=== PATIENT | male | born 1990 | race Caucasian/White ===

== ENCOUNTER 2016-07-22 12:41 | Inpatient (IN) | payer OTHER ==
--- NOTE | 2016-07-22 12:52 | ER Document Report ---
ED Medical Screen (RME) - General Stated Complaint: SORE THROAT Time seen by provider: 12:50 Mode of Arrival: Ambulatory Notes: Patient is here today complaining of abdominal pain and constant diarrhea for the last 2-3 weeks. Patient reports diarrhea 5 already this morning. He reports weight loss, denies nausea or vomiting, states not eating well. Patient has extreme fatigue. Sore throat started about 2 days ago, denies nasal congestion. Denies fever. I have greeted and performed a rapid initial assessment of this patient. A comprehensive ED assessment and evaluation of the patient, analysis of test results and completion of the medical decision making process will be conducted by additional ED providers. - Related Data Allergies/Adverse Reactions: No Known Allergies Allergy (Unverified 07/22/16 12:42) Physical Exam - Vital signs Vitals: Temp Pulse Resp BP Pulse Ox 97.4 F 138 H 18 109/71 100 07/22/16 12:46 07/22/16 12:46 07/22/16 12:46 07/22/16 12:46 07/22/16 12:46 - HEENT Pharynx: Erythema, Other - ulcerations noted to oropharynx Course - Vital Signs Vital signs: Temp Pulse Resp BP Pulse Ox 97.4 F 138 H 18 109/71 100 07/22/16 12:46 07/22/16 12:46 07/22/16 12:46 07/22/16 12:46 07/22/16 12:46
[2016-07-22] MEDS: NORMAL SALINE 1000 ML 1,000 ML IV PRN ×2 (13:21→13:58)
[2016-07-22] MEDS ORDERED: ONDANSETRON HCL INJ/PF 4 MG/2 ML SDV IV ONE (13:28)
[2016-07-22 14:06] LABS: HEMATOCRIT 39.3 % (37.9-51.0); HEMOGLOBIN 12.8 g/dL (13.5-17.0); HGB HCT DIFFERENCE -0.9; MEAN CORPUSCULAR HEMOGLOBIN 24.7 pg (27.0-33.4); MEAN CORPUSCULAR HGB CONC 32.5 g/dL (32.0-36.0); MEAN CORPUSCULAR VOLUME 76 fl (80-97); RED BLOOD COUNT 5.17 10^6/uL (4.35-5.55); RED CELL DISTRIBUTION WIDTH 16.9 % (11.5-14.0); WHITE BLOOD COUNT 15.5 10^3/uL (4.0-10.5)
[2016-07-22 14:32] LABS: ALANINE AMINOTRANSFERASE 97 U/L (21-72); ALBUMIN 3.5 g/dL (3.5-5.0); ALKALINE PHOSPHATASE 171 U/L (38-126); ANION GAP 10 (5-19); ASPARTATE AMINO TRANSFERASE 70 U/L (17-59); BILIRUBIN,TOTAL 0.9 mg/dL (0.2-1.3); BLOOD UREA NITROGEN 13 mg/dL (7-20); CALCIUM 8.8 mg/dL (8.4-10.2); CARBON DIOXIDE 32 mmol/L (22-30); CHLORIDE 82 mmol/L (98-107); CREATINE KINASE 41 U/L (55-170); CREATININE RESULT 0.81 mg/dL (0.52-1.25); GLUCOSE 130 mg/dL (75-110); LIPASE 22.2 U/L (23-300); MAGNESIUM 2.6 mg/dL (1.6-2.3); POTASSIUM 3.4 mmol/L (3.6-5.0); TOTAL PROTEIN 8.1 g/dL (6.3-8.2)
[2016-07-22 14:35] LABS: BAND NEUTROPHILS % (MANUAL) 8 % (3-5); BASOPHILS % (MANUAL) 0 % (0-2); EOSINOPHILS % (MANUAL) 0 % (0-6); LYMPHOCYTES % (MANUAL) 5 % (13-45); TOTAL CELLS COUNTED 100
[2016-07-22 14:36] LABS: ANISOCYTOSIS 1+; HYPOCHROMASIA SLIGHT; MICROCYTOSIS SLIGHT; ROULEAUX SLIGHT
[2016-07-22 16:06] LABS: APPEARANCE,URINE CLEAR; BILIRUBIN,URINE NEGATIVE (NEGATIVE); GLUCOSE, URINE NEGATIVE (NEGATIVE); KETONES,URINE NEGATIVE (NEGATIVE); LEUKOCYTE ESTERASE,URINE NEGATIVE (NEGATIVE); NITRITE,URINE NEGATIVE (NEGATIVE); PROTEIN,URINE NEGATIVE (NEGATIVE); URINE SPECIFIC GRAVITY 1.009; UROBILINOGEN,URINE NEGATIVE mg/dL (<2.0)
[2016-07-22 16:22] LABS: URINE BARBITURATES SCREEN NEGATIVE; URINE METHADONE SCREEN NEGATIVE; URINE OPIATES LOW NEGATIVE; URINE PHENCYCLIDINE SCREEN NEGATIVE
[2016-07-22] MEDS ORDERED: METRONIDAZOLE 500 MG/NS RTU 100 ML IV ONE (16:24)
[2016-07-22] MEDS ORDERED: CIPROFLOXACIN 400 MG/D5W RTU 200 ML IV ONE (16:25)
--- NOTE | 2016-07-22 16:33 | ER Document Report ---
ED General - General Chief Complaint: Sore Throat Stated Complaint: SORE THROAT Mode of Arrival: Ambulatory TRAVEL OUTSIDE OF THE [place] IN LAST 30 DAYS: No - HPI Patient complains to provider of: sore throat nausea vomiting diarrhea abdominal pain Notes: Patient recently moved from [place] to a [place] coming in today for evaluation of nausea vomiting diarrhea sore throat ongoing for the last 2 weeks sore throat last 2 days. Patient denies any medical problems states he has lost approximate 40 pounds in the last 30 days. Patient states significant [place] to work on a due to his body being transferred to [place]. Denies any allergies to medications. Upon arrival patient was found to be very tachycardic otherwise upon evaluation patient resting comfortably - Related Data Allergies/Adverse Reactions: No Known Allergies Allergy (Unverified 07/22/16 12:42) Home Medications: Current Home Medications No Home Medications 07/22/16 [History] Past Medical History - Social History Smoking Status: Unknown if Ever Smoked Chew tobacco use (# tins/day): No Frequency of alcohol use: None Drug Abuse: None Family History: Reviewed & Not Pertinent Patient has suicidal ideation: No Patient has homicidal ideation: No Renal/ Medical History: Denies: Hx Peritoneal Dialysis Surgical Hx: Negative - Immunizations Hx Diphtheria, Pertussis, Tetanus Vaccination: Yes Review of Systems - Review of Systems Constitutional: No symptoms reported EENT: Throat pain Cardiovascular: No symptoms reported Respiratory: No symptoms reported Gastrointestinal: Abdominal pain, Diarrhea, Nausea, Vomiting Genitourinary: No symptoms reported Male Genitourinary: No symptoms reported Musculoskeletal: No symptoms reported Skin: No symptoms reported Hematologic/Lymphatic: No symptoms reported Neurological/Psychological: No symptoms reported -: Yes All other systems reviewed and negative Physical Exam - Vital signs Vitals: Temp Pulse Resp BP Pulse Ox 97.4 F 138 H 18 109/71 100 07/22/16 12:46 07/22/16 12:46 07/22/16 12:46 07/22/16 12:46 07/22/16 12:46 Interpretation: Tachycardic - General General appearance: Appears well, Alert - HEENT Head: Normocephalic, Atraumatic Eyes: Normal Pupils: PERRL - Respiratory Respiratory status: No respiratory distress Chest status: Nontender Breath sounds: Normal Chest palpation: Normal - Cardiovascular Rhythm: Tachycardia Heart sounds: Normal auscultation Murmur: No - Abdominal Inspection: Normal Distension: No distension Bowel sounds: Normal Tenderness: Nontender Organomegaly: No organomegaly - Back Back: Normal, Nontender - Extremities General upper extremity: Normal inspection, Nontender, Normal color, Normal ROM , Normal temperature General lower extremity: Normal inspection, Nontender, Normal color, Normal ROM , Normal temperature, Normal weight bearing. No: Marquita's sign - Neurological Neuro grossly intact: Yes Cognition: Normal Orientation: AAOx4 [place] Coma Scale Eye Opening: Spontaneous Vincent Coma Scale Verbal: Oriented [place] Coma Scale Motor: Obeys Commands [place] Coma Scale Total: 15 Speech: Normal Motor strength normal: LUE, RUE, LLE, RLE Sensory: Normal - Psychological Associated symptoms: Normal affect, Normal mood - Skin Skin Temperature: Warm Skin Moisture: Dry Skin Color: Normal Course - Re-evaluation Re-evalutation: 07/22/16 17:23 Patient coming in lab work shows elevated white count with bandemia metabolic alkalosis with hyponatremia. Patient underwent a CAT scan showing diffuse colitis possible inflammatory bowel. Patient's mouth ulcers and history of nausea vomiting diarrhea and weight loss more likely upon for about will start Cipro Flagyl patient was fluid resuscitated however still the static. Patient will be admitted to [facility] [place] hospitalist service. - Vital Signs Vital signs: Temp Pulse Resp BP Pulse Ox 97.4 F 86 15 126/79 H 99 07/22/16 12:46 07/22/16 14:43 07/22/16 16:04 07/22/16 15:01 07/22/16 16:04 - Laboratory Result Diagrams: 07/22/16 13:50 07/22/16 13:50 Laboratory results interpreted by me: 07/22/16 07/22/16 13:50 13:50 WBC 15.5 H Hgb 12.8 L MCV 76 L MCH 24.7 L RDW 16.9 H Plt Count 465 H Seg Neuts % (Manual) 81 H Band Neutrophils % 8 H Lymphocytes % (Manual) 5 L Metamyelocytes % 2 H Abs Neuts (Manual) 14.1 H Sodium 124.0 L Potassium 3.4 L Chloride 82 L Carbon Dioxide 32 H Glucose 130 H Magnesium 2.6 H AST 70 H ALT 97 H Alkaline Phosphatase 171 H Creatine Kinase 41 L Lipase 22.2 L Critical Care Note - Critical Care Note Total time excluding time spent on procedures (mins): 35 Comments: Multiple evaluations for abnormal vital signs Discharge - Discharge Clinical Impression: colitis/inflammatory bowel, Dehydration, Hyponatremia, Nausea, vomiting, and diarrhea Condition: Good Disposition: ADMITTED INPATIENT Admitting Provider: [facility] Unit Admitted: [facility] [place]
[2016-07-22 17:18] LABS: ADD HIVPANEL? NO; HIV (1 AND 2) ANTIBODY NEGATIVE (NEGATIVE)
--- NOTE | 2016-07-22 17:41 | PDOC H&P ---
History of Present Illness Admission Date/PCP: 07/22/16 17:09 Patient complains of: Vomiting diarrhea for 2 weeks ;generalized weakness History of Present Illness: RAY GORDON is a 25 year old male Presents to the ED with 2 week history of vomiting or diarrhea generalized weakness Patient states that about a week ago he developed a skin lesion is on his left davidson. And for the past 3 days had has buccal ulcerations Upon evaluation in the ED he was found extremely dehydrated; with hyponatremia hypokalemia Low side was hypotensive and was hypotensive. Although he is because is somewhat low and is as he significant is mainly cannot be hypovolemic is a little low. I am cerebral approximately diuresing gently and exiting with his is felt that some it is his blood pressure is Past Medical History Medical History: None Past Surgical History Past Surgical History: Reports: None Social History Information Source: Patient Smoking Status: Never Smoker Frequency of Alcohol Use: None Hx Recreational Drug Use: No - Advance Directive Resuscitation Status: Full Code Surrogate healthcare decision maker:: mother Lorelei Family History Family History: Reviewed & Not Pertinent Parental Family History Reviewed: Yes Children Family History Reviewed: Yes Sibling(s) Family History Reviewed.: Yes Medication/Allergy Home Medications: No Home Medications 07/22/16 Allergies/Adverse Reactions: No Known Allergies Allergy (Unverified 07/22/16 12:42) Review of Systems Constitutional: PRESENT: weakness, weight loss. ABSENT: chills, fever(s), headache(s) Eyes: ABSENT: visual disturbances Ears: ABSENT: hearing changes Nose, Mouth, and Throat: PRESENT: as per HPI, mouth pain, other - mouth sores Cardiovascular: ABSENT: chest pain, dyspnea on exertion, edema, orthropnea, palpitations Respiratory: ABSENT: cough, hemoptysis Gastrointestinal: PRESENT: as per HPI, abdominal pain, diarrhea, nausea, vomiting Genitourinary: ABSENT: dysuria, hematuria Musculoskeletal: ABSENT: joint swelling Integumentary: ABSENT: rash, wounds Neurological: ABSENT: abnormal gait, abnormal speech, confusion, dizziness, focal weakness, syncope Psychiatric: ABSENT: anxiety, depression, homidical ideation, suicidal ideation Endocrine: ABSENT: cold intolerance, heat intolerance, polydipsia, polyuria Hematologic/Lymphatic: ABSENT: easy bleeding, easy bruising Physical Exam Vital Signs: Temp Pulse Resp BP Pulse Ox 97.4 F 86 15 126/79 H 99 07/22/16 12:46 07/22/16 14:43 07/22/16 16:04 07/22/16 15:01 07/22/16 16:04 General appearance: PRESENT: mild distress Head exam: PRESENT: atraumatic, normocephalic Eye exam: PRESENT: conjunctival injection, other - shallow ulcerations lids mild conjunctivitis Ear exam: PRESENT: normal external ear exam Throat exam: PRESENT: post pharyngeal erythema, other - shallow vesicular lesions buccal mucosa containing purulent material lesions lips and posterior pharynx Neck exam: ABSENT: carotid bruit, lymphadenopathy, tenderness Respiratory exam: PRESENT: clear to auscultation gita. ABSENT: rales, rhonchi, wheezes Cardiovascular exam: PRESENT: RRR. ABSENT: diastolic murmur, rubs, systolic murmur GI/Abdominal exam: PRESENT: normal bowel sounds, soft. ABSENT: distended, guarding, mass, organolmegaly, rebound, tenderness Extremities exam: PRESENT: full ROM. ABSENT: calf tenderness, clubbing, pedal edema Skin exam: PRESENT: other - macular lesion davidson warm to touch with central clearing Results Laboratory Results: Labs- Entire Visit 07/22/16 07/22/16 07/22/16 13:00 13:00 13:50 WBC 15.5 H RBC 5.17 Hgb 12.8 L Hct 39.3 MCV 76 L MCH 24.7 L MCHC 32.5 RDW 16.9 H Plt Count 465 H Total Counted 100 Seg Neutrophils % Not Reportable Seg Neuts % (Manual) 81 H Band Neutrophils % 8 H Lymphocytes % Not Reportable Lymphocytes % (Manual) 5 L Monocytes % Not Reportable Monocytes % (Manual) 4 Eosinophils % Not Reportable Eosinophils % (Manual) 0 Basophils % Not Reportable Basophils % (Manual) 0 Metamyelocytes % 2 H Absolute Neutrophils Not Reportable Abs Neuts (Manual) 14.1 H Absolute Lymphocytes Not Reportable Abs Lymphs (Manual) 0.8 Absolute Monocytes Not Reportable Abs Monocytes (Manual) 0.6 Absolute Eosinophils Not Reportable Absolute Eos (Manual) 0.0 Absolute Basophils Not Reportable Abs Basophils (Manual) 0.0 Platelet Comment INCREASED Hypochromasia SLIGHT Anisocytosis 1+ Microcytosis SLIGHT Rouleaux SLIGHT Sodium Potassium Chloride Carbon Dioxide Anion Gap BUN Creatinine Est GFR ( Amer) Est GFR (Non-Af Amer) Glucose Calcium Magnesium Total Bilirubin Direct Bilirubin AST ALT Alkaline Phosphatase Creatine Kinase Total Protein Albumin Lipase Urine Color Urine Appearance Urine pH Ur Specific [place] Urine Protein Urine Glucose (UA) Urine Ketones Urine Blood Urine Nitrite Urine Bilirubin Urine Urobilinogen Ur Leukocyte Esterase Urine WBC (Auto) Urine RBC (Auto) Urine Ascorbic Acid Urine Opiates Screen Urine Methadone Screen Ur Barbiturates Screen Ur Phencyclidine Scrn Ur Amphetamines Screen U Benzodiazepines Scrn Urine Cocaine Screen U Marijuana (THC) Screen Monotest HIV 1&2 Antibody Influenza A (Rapid) NEGATIVE Influenza B (Rapid) NEGATIVE Group A Strep Rapid NEGATIVE 07/22/16 07/22/16 07/22/16 13:50 13:50 13:50 WBC RBC Hgb Hct MCV MCH MCHC RDW Plt Count Total Counted Seg Neutrophils % Seg Neuts % (Manual) Band Neutrophils % Lymphocytes % Lymphocytes % (Manual) Monocytes % Monocytes % (Manual) Eosinophils % Eosinophils % (Manual) Basophils % Basophils % (Manual) Metamyelocytes % Absolute Neutrophils Abs Neuts (Manual) Absolute Lymphocytes Abs Lymphs (Manual) Absolute Monocytes Abs Monocytes (Manual) Absolute Eosinophils Absolute Eos (Manual) Absolute Basophils Abs Basophils (Manual) Platelet Comment Hypochromasia Anisocytosis Microcytosis Rouleaux Sodium 124.0 L Potassium 3.4 L Chloride 82 L Carbon Dioxide 32 H Anion Gap 10 BUN 13 Creatinine 0.81 Est GFR ( Amer) > 60 Est GFR (Non-Af Amer) > 60 Glucose 130 H Calcium 8.8 Magnesium 2.6 H Total Bilirubin 0.9 Direct Bilirubin 0.0 AST 70 H ALT 97 H Alkaline Phosphatase 171 H Creatine Kinase 41 L Total Protein 8.1 Albumin 3.5 Lipase 22.2 L Urine Color Urine Appearance Urine pH Ur Specific [place] Urine Protein Urine Glucose (UA) Urine Ketones Urine Blood Urine Nitrite Urine Bilirubin Urine Urobilinogen Ur Leukocyte Esterase Urine WBC (Auto) Urine RBC (Auto) Urine Ascorbic Acid Urine Opiates Screen Urine Methadone Screen Ur Barbiturates Screen Ur Phencyclidine Scrn Ur Amphetamines Screen U Benzodiazepines Scrn Urine Cocaine Screen U Marijuana (THC) Screen Monotest NEGATIVE HIV 1&2 Antibody NEGATIVE Influenza A (Rapid) Influenza B (Rapid) Group A Strep Rapid 07/22/16 07/22/16 15:00 15:00 WBC RBC Hgb Hct MCV MCH MCHC RDW Plt Count Total Counted Seg Neutrophils % Seg Neuts % (Manual) Band Neutrophils % Lymphocytes % Lymphocytes % (Manual) Monocytes % Monocytes % (Manual) Eosinophils % Eosinophils % (Manual) Basophils % Basophils % (Manual) Metamyelocytes % Absolute Neutrophils Abs Neuts (Manual) Absolute Lymphocytes Abs Lymphs (Manual) Absolute Monocytes Abs Monocytes (Manual) Absolute Eosinophils Absolute Eos (Manual) Absolute Basophils Abs Basophils (Manual) Platelet Comment Hypochromasia Anisocytosis Microcytosis Rouleaux Sodium Potassium Chloride Carbon Dioxide Anion Gap BUN Creatinine Est GFR ( Amer) Est GFR (Non-Af Amer) Glucose Calcium Magnesium Total Bilirubin Direct Bilirubin AST ALT Alkaline Phosphatase Creatine Kinase Total Protein Albumin Lipase Urine Color YELLOW Urine Appearance CLEAR Urine pH 6.0 Ur Specific [place] 1.009 Urine Protein NEGATIVE Urine Glucose (UA) NEGATIVE Urine Ketones NEGATIVE Urine Blood NEGATIVE Urine Nitrite NEGATIVE Urine Bilirubin NEGATIVE Urine Urobilinogen NEGATIVE Ur Leukocyte Esterase NEGATIVE Urine WBC (Auto) 3 Urine RBC (Auto) 1 Urine Ascorbic Acid NEGATIVE Urine Opiates Screen NEGATIVE Urine Methadone Screen NEGATIVE Ur Barbiturates Screen NEGATIVE Ur Phencyclidine Scrn NEGATIVE Ur Amphetamines Screen NEGATIVE U Benzodiazepines Scrn NEGATIVE Urine Cocaine Screen NEGATIVE U Marijuana (THC) Screen NEGATIVE Monotest HIV 1&2 Antibody Influenza A (Rapid) Influenza B (Rapid) Group A Strep Rapid Impressions: Abdomen/Pelvis CT 07/22/16 14:43 IMPRESSION: Diffuse colonic bowel wall thickening. Findings are consistent with colitis. This could be infectious or inflammatory. Assessment & Plan - Diagnosis (1) Dehydration Is this a current diagnosis for this admission?: Yes (2) Hyponatremia Is this a current diagnosis for this admission?: Yes (3) Nausea vomiting and diarrhea Is this a current diagnosis for this admission?: Yes (4) IBD (inflammatory bowel disease) Is this a current diagnosis for this admission?: Yes (5) Erythema nodosum Is this a current diagnosis for this admission?: Yes - Time Time Spent with patient: We'll hydrate the patient with IV fluids ; replace potassium We'll treat the patient with prednisone; Asacol , cipro and Flagyl GI consult in on Monday with Dr. Davis for colonoscopy Time Spent: 50 to 70 Minutes
[2016-07-22] MEDS ORDERED: PREDNISONE 20 MG TABLET PO ONE (17:45)
[2016-07-22] MEDS ORDERED: METRONIDAZOLE 500 MG/NS RTU 100 ML IV SCH (18:00)
[2016-07-22] MEDS: POTASSI CL 20 MEQ/NS 1L 1,000 ML IV PRN (18:55)
[2016-07-22] MEDS: SULFASALAZINE 500 MG TABLET.DR PO SCH (18:57)
[2016-07-22] MEDS ORDERED: CIPROFLOXACIN 400 MG/D5W RTU 200 ML IV SCH (22:00)
[2016-07-23] MEDS: NYSTATIN/DEXAMETH/DIPHEN SUSP 120 ML PO SCH ×5 (00:21→22:33)
[2016-07-23] MEDS: METRONIDAZOLE 500 MG/NS RTU 100 ML IV SCH ×5 (00:21→22:33)
[2016-07-23] MEDS ORDERED: METRONIDAZOLE 500 MG/NS RTU 100 ML IV SCH (03:00)
[2016-07-23] MEDS: POTASSI CL 20 MEQ/NS 1L 1,000 ML IV PRN (03:58)
[2016-07-23] MEDS: CIPROFLOXACIN 400 MG/D5W RTU 400 MG/200 ML RTUPB IV SCH ×2 (05:37→18:39)
[2016-07-23 05:43] LABS: HEMATOCRIT 31.5 % (37.9-51.0); HGB HCT DIFFERENCE -0.6; MEAN CORPUSCULAR HEMOGLOBIN 24.7 pg (27.0-33.4); MEAN CORPUSCULAR HGB CONC 32.7 g/dL (32.0-36.0); MEAN CORPUSCULAR VOLUME 76 fl (80-97); RED BLOOD COUNT 4.16 10^6/uL (4.35-5.55); RED CELL DISTRIBUTION WIDTH 16.5 % (11.5-14.0)
[2016-07-23 05:57] LABS: ALANINE AMINOTRANSFERASE 82 U/L (21-72); ALBUMIN 2.4 g/dL (3.5-5.0); ALKALINE PHOSPHATASE 120 U/L (38-126); ANION GAP 8 (5-19); ASPARTATE AMINO TRANSFERASE 46 U/L (17-59); BILIRUBIN,TOTAL 0.4 mg/dL (0.2-1.3); BLOOD UREA NITROGEN 8 mg/dL (7-20); CALCIUM 7.9 mg/dL (8.4-10.2); CARBON DIOXIDE 26 mmol/L (22-30); CHLORIDE 93 mmol/L (98-107); CREATININE RESULT 0.57 mg/dL (0.52-1.25); GLUCOSE 125 mg/dL (75-110); SODIUM 126.8 mmol/L (137-145); TOTAL PROTEIN 5.7 g/dL (6.3-8.2)
[2016-07-23] MEDS ORDERED: CIPROFLOXACIN 400 MG/D5W RTU 400 MG/200 ML RTUPB IV SCH (06:00)
[2016-07-23 06:13] LABS: HEMOGLOBIN 10.3 g/dL (13.5-17.0)
[2016-07-23 06:17] LABS: BAND NEUTROPHILS % (MANUAL) 8 % (3-5); BASOPHILS % (MANUAL) 0 % (0-2); EOSINOPHILS % (MANUAL) 0 % (0-6); LYMPHOCYTES % (MANUAL) 2 % (13-45); TOTAL CELLS COUNTED 100
[2016-07-23 06:18] LABS: TOXIC GRANULATION 2+; TOXIC VACUOLATION PRESENT
[2016-07-23 06:21] LABS: ANISOCYTOSIS 1+; BURR CELLS 1+; HELMET CELLS SLIGHT; MICROCYTOSIS 1+; POIKILOCYTOSIS 2+; ROULEAUX SLIGHT; TEAR DROP CELLS 1+
[2016-07-23 06:30] LABS: POTASSIUM 4.8 mmol/L (3.6-5.0)
[2016-07-23] MEDS: ENOXAPARIN SODIUM INJ 40 MG/0.4 ML DISP.SYRIN SUBCUT SCH (08:35)
[2016-07-23] MEDS: SULFASALAZINE 500 MG TABLET.DR PO SCH ×2 (09:01→17:21)
[2016-07-23] MEDS ORDERED: PREDNISONE 20 MG TABLET PO SCH (10:00)
[2016-07-23] MEDS: BENZOCAINE/MENTHOL SORE THROAT LOZENGE BUCCAL PRN ×3 (11:41→23:00)
[2016-07-23] MEDS: NORMAL SALINE 1000 ML 1,000 ML IV PRN ×2 (17:24→22:34)
--- NOTE | 2016-07-23 17:31 | PDOC PROGRESS REPORT ---
Subjective Progress Note for:: 07/23/16 Subjective:: Patient states she is already feels a little better less weak the mucosal lesions in the mail so still quite painful Still has diarrhea 3-6 times per day, is watery nonbloody non-mucousy He has no fever no chills and minimal abdominal pain Physical Exam Vital Signs: Temp Pulse Resp BP Pulse Ox 98.6 F 63 18 125/69 100 07/23/16 13:00 07/23/16 13:00 07/23/16 13:00 07/23/16 13:00 07/23/16 13:00 Intake & Output 07/22/16 07/23/16 07/24/16 00:59 00:59 00:59 Intake Total 200 1320 Output Total 100 200 Balance 100 1120 Weight 71.6 kg General appearance: PRESENT: no acute distress Head exam: PRESENT: atraumatic, normocephalic Eye exam: PRESENT: other - Shallow ulcerations of the lid margin Erythema of the sclera Throat exam: PRESENT: other - vesicular lesions in the back of the throat and buccal Mucosa The vesicles contain cloudy material Respiratory exam: PRESENT: clear to auscultation gita. ABSENT: rales, rhonchi, wheezes Cardiovascular exam: PRESENT: RRR. ABSENT: diastolic murmur, rubs, systolic murmur Pulses: PRESENT: normal dorsalis pedis pul Skin exam: PRESENT: other - Erythematous lesion on the left davidson is fading Results Laboratory Results: 07/23/16 04:46 07/23/16 04:46 07/23/16 07/23/16 07/23/16 04:46 04:46 04:46 WBC 13.0 H RBC 4.16 L Hgb 10.3 L D Hct 31.5 L MCV 76 L MCH 24.7 L MCHC 32.7 RDW 16.5 H Plt Count 320 Seg Neutrophils % Not Reportable Lymphocytes % Not Reportable Monocytes % Not Reportable Eosinophils % Not Reportable Basophils % Not Reportable Absolute Neutrophils Not Reportable Absolute Lymphocytes Not Reportable Absolute Monocytes Not Reportable Absolute Eosinophils Not Reportable Absolute Basophils Not Reportable Sodium 126.8 L Potassium 4.8 D Chloride 93 L Carbon Dioxide 26 Anion Gap 8 BUN 8 Creatinine 0.57 Est GFR ( Amer) > 60 Est GFR (Non-Af Amer) > 60 Glucose 125 H Calcium 7.9 L Total Bilirubin 0.4 AST 46 ALT 82 H Alkaline Phosphatase 120 Total Protein 5.7 L Albumin 2.4 L Vitamin B12 > 1000.0 H TSH 0.97 Impressions: Abdomen/Pelvis CT 07/22/16 14:43 IMPRESSION: Diffuse colonic bowel wall thickening. Findings are consistent with colitis. This could be infectious or inflammatory. Assessment & Plan - Diagnosis (1) Dehydration Is this a current diagnosis for this admission?: YesPlan: Is improving (2) Hyponatremia Is this a current diagnosis for this admission?: YesPlan: Improving continue normal saline (3) Nausea vomiting and diarrhea Is this a current diagnosis for this admission?: YesPlan: Nausea and vomiting have resolved We will increase the diet as tolerated to GI soft (4) IBD (inflammatory bowel disease) Is this a current diagnosis for this admission?: YesPlan: Continue the present management Mother wishes to take her son home tomorrow and Drive to [place] where her doctors are We will release patient in a.m. if stable for long car ride (5) Erythema nodosum Is this a current diagnosis for this admission?: YesPlan: Is fading - Time Time Spent with patient: Continue the present management Reevaluate in a.m. for discharge Time Spent with patient: 15-24 minutes
[2016-07-23] MEDS ORDERED: SULFASALAZINE 500 MG TABLET.DR PO SCH (18:00)
[2016-07-24] MEDS: CIPROFLOXACIN 400 MG/D5W RTU 400 MG/200 ML RTUPB IV SCH (05:03)
[2016-07-24] MEDS: NORMAL SALINE 1000 ML 1,000 ML IV PRN (05:03)
[2016-07-24] MEDS: METRONIDAZOLE 500 MG/NS RTU 100 ML IV SCH (05:04)
[2016-07-24 06:49] LABS: ALANINE AMINOTRANSFERASE 65 U/L (21-72); ALBUMIN 2.3 g/dL (3.5-5.0); ALKALINE PHOSPHATASE 101 U/L (38-126); ANION GAP 9 (5-19); ASPARTATE AMINO TRANSFERASE 26 U/L (17-59); BILIRUBIN,TOTAL 0.3 mg/dL (0.2-1.3); BLOOD UREA NITROGEN 5 mg/dL (7-20); CALCIUM 7.9 mg/dL (8.4-10.2); CARBON DIOXIDE 24 mmol/L (22-30); CHLORIDE 98 mmol/L (98-107); CREATININE RESULT 0.61 mg/dL (0.52-1.25); GLUCOSE 94 mg/dL (75-110); POTASSIUM 3.8 mmol/L (3.6-5.0); SODIUM 131.3 mmol/L (137-145)
[2016-07-24 06:53] LABS: HEMATOCRIT 30.3 % (37.9-51.0); HEMOGLOBIN 9.8 g/dL (13.5-17.0); HGB HCT DIFFERENCE -0.9; MEAN CORPUSCULAR HGB CONC 32.4 g/dL (32.0-36.0); MEAN CORPUSCULAR VOLUME 77 fl (80-97); RED BLOOD COUNT 3.94 10^6/uL (4.35-5.55); RED CELL DISTRIBUTION WIDTH 16.4 % (11.5-14.0); WHITE BLOOD COUNT 9.3 10^3/uL (4.0-10.5)
[2016-07-24 07:23] LABS: BASOPHILS % (MANUAL) 1 % (0-2); EOSINOPHILS % (MANUAL) 2 % (0-6); LYMPHOCYTES % (MANUAL) 8 % (13-45); TOTAL CELLS COUNTED 100
[2016-07-24 07:29] LABS: ANISOCYTOSIS 1+; BAND NEUTROPHILS % (MANUAL) 14 % (3-5); HYPOCHROMASIA SLIGHT; MICROCYTOSIS 1+; TOXIC GRANULATION SLIGHT
--- NOTE | 2016-07-24 07:54 | PDOC DISCHARGE SUMMARY ---
General - Admit/Disc Date/PCP Admission Date/Primary Care Provider: 07/22/16 17:14 Discharge Date: 07/24/16 - Discharge Diagnosis (1) Dehydration Is this a current diagnosis for this admission?: Yes (2) Hyponatremia Is this a current diagnosis for this admission?: Yes (3) Nausea vomiting and diarrhea Is this a current diagnosis for this admission?: Yes (4) IBD (inflammatory bowel disease) Is this a current diagnosis for this admission?: Yes (5) Erythema nodosum Is this a current diagnosis for this admission?: Yes - Additional Information Resuscitation Status: Full Code Discharge Diet: Other (Comments) - GI soft no milk or fresh fruit- vegetables Discharge Activity: Activity As Tolerated Home Medications: Ciprofloxacin HCl [Cipro 500 mg Tablet] 500 mg PO BID #20 tablet 07/24/16 Metronidazole [Flagyl 500 mg Tablet] 500 mg PO TID #30 tablet 07/24/16 Nystatin/Dexameth/Diphen [Magic Mouthwash (Omh Formula) Susp] 5 ml PO QID #120 ml 07/24/16 Prednisone [Deltasone 20 mg Tablet] 60 mg PO DAILY #30 tablet 07/24/16 Sulfasalazine [Azulfidine 500 mg Tablet.] 1,000 mg PO TID #100 tablet. 07/24 History of Present Illness Patient complains of: diarrhea, weakness History of Present Illness: RAY GORDON is a 25 year old male Presents to the ED with 2 week history of vomiting or diarrhea generalized weakness Patient states that about a week ago he developed a skin lesion is on his left davidson. And for the past 3 days had has buccal ulcerations Upon evaluation in the ED he was found extremely dehydrated; with hyponatremia hypokalemia He was subsequently admitted under hospitalist service for further evaluation and care Hospital Course Hospital Course: Patient was found to be extremely dehydrated on admission with hyponatremia He had leukocytosis with a white blood count of 15.[address] abdomen and pelvis was suggestive for acute colitis He had severe aphtous stomatitis and a rash on his left davidson which was suggestive of E Nodosum We felt that the most likely diagnosis was inflammatory bowel disease Patient it was treated with intravenous fluids, Cipro, Flagyl, prednisone and sulfasalazine His condition improved quickly He had minimal abdominal pain, tolerated by mouth clear liquids had no fever no chills Leukocytosis resolved Hyponatremia improved; at discharge sodium is 131 07/22/16 07/22/16 07/22/16 13:00 13:00 13:50 WBC 15.5 H Hgb 12.8 L Hct 39.3 Sodium Vitamin B12 C. difficile Tox (PCR) Monotest HIV 1&2 Antibody Influenza A (Rapid) NEGATIVE Influenza B (Rapid) NEGATIVE Group A Strep Rapid NEGATIVE 07/22/16 07/22/16 07/22/16 13:50 13:50 13:50 WBC Hgb Hct Sodium 124.0 L Vitamin B12 C. difficile Tox (PCR) Monotest NEGATIVE HIV 1&2 Antibody NEGATIVE Influenza A (Rapid) Influenza B (Rapid) Group A Strep Rapid 07/23/16 07/23/16 07/24/16 03:59 04:46 05:54 WBC 9.3 Hgb 9.8 L Hct 30.3 L Sodium Vitamin B12 > 1000.0 H C. difficile Tox (PCR) NEGATIVE Monotest HIV 1&2 Antibody Influenza A (Rapid) Influenza B (Rapid) Group A Strep Rapid 07/24/16 05:54 WBC Hgb Hct Sodium 131.3 L Vitamin B12 C. difficile Tox (PCR) Monotest HIV 1&2 Antibody Influenza A (Rapid) Influenza B (Rapid) Group A Strep Rapid Patient was discharged before a GI workup could be completed as his mother wishes to drive home to [place] Patient will be evaluated by gastroenterology in [facility] Physical Exam Vital Signs: Temp Pulse Resp BP Pulse Ox 97.6 F 81 20 123/84 100 07/24/16 00:00 07/24/16 00:00 07/24/16 00:00 07/24/16 00:00 07/24/16 00:00 Intake & Output 07/23/16 07/24/16 07/25/16 00:59 00:59 00:59 Intake Total 200 3715 2141 Output Total 100 200 Balance 100 3515 2141 Weight 71.6 kg 73.7 kg General appearance: PRESENT: no acute distress, well-developed, well-nourished Head exam: PRESENT: atraumatic, normocephalic Eye exam: PRESENT: conjunctiva pale, EOMI, PERRLA. ABSENT: scleral icterus Ear exam: PRESENT: normal external ear exam Mouth exam: PRESENT: moist, tongue midline Neck exam: ABSENT: carotid bruit, JVD, lymphadenopathy, thyromegaly Respiratory exam: PRESENT: clear to auscultation gita. ABSENT: rales, rhonchi, wheezes Cardiovascular exam: PRESENT: RRR. ABSENT: diastolic murmur, rubs, systolic murmur Pulses: PRESENT: normal dorsalis pedis pul Vascular exam: PRESENT: normal capillary refill GI/Abdominal exam: PRESENT: normal bowel sounds, soft. ABSENT: distended, guarding, mass, organolmegaly, rebound, tenderness Rectal exam: PRESENT: deferred Extremities exam: PRESENT: full ROM. ABSENT: calf tenderness, clubbing, pedal edema Neurological exam: PRESENT: alert, awake, oriented to person, oriented to place , oriented to time, oriented to situation, CN II-XII grossly intact. ABSENT: motor sensory deficit Psychiatric exam: PRESENT: appropriate affect, normal mood. ABSENT: homicidal ideation, suicidal ideation Skin exam: PRESENT: dry, intact, rash - The erythematous lesion is fading on left davidson, warm. ABSENT: cyanosis Results Laboratory Results: 07/24/16 05:54 07/24/16 05:54 07/24/16 07/24/16 05:54 05:54 WBC 9.3 RBC 3.94 L Hgb 9.8 L Hct 30.3 L MCV 77 L MCH 25.0 L MCHC 32.4 RDW 16.4 H Plt Count 302 Seg Neutrophils % Not Reportable Lymphocytes % Not Reportable Monocytes % Not Reportable Eosinophils % Not Reportable Basophils % Not Reportable Absolute Neutrophils Not Reportable Absolute Lymphocytes Not Reportable Absolute Monocytes Not Reportable Absolute Eosinophils Not Reportable Absolute Basophils Not Reportable Sodium 131.3 L Potassium 3.8 Chloride 98 Carbon Dioxide 24 Anion Gap 9 BUN 5 L Creatinine 0.61 Est GFR ( Amer) > 60 Est GFR (Non-Af Amer) > 60 Glucose 94 Calcium 7.9 L Total Bilirubin 0.3 AST 26 ALT 65 Alkaline Phosphatase 101 Total Protein 5.0 L Albumin 2.3 L Labs- Entire Visit 07/22/16 07/22/16 07/22/16 13:00 13:00 13:50 WBC 15.5 H RBC 5.17 Hgb 12.8 L Hct 39.3 MCV 76 L MCH 24.7 L MCHC 32.5 RDW 16.9 H Plt Count 465 H Total Counted 100 Seg Neutrophils % Not Reportable Seg Neuts % (Manual) 81 H Band Neutrophils % 8 H Lymphocytes % Not Reportable Lymphocytes % (Manual) 5 L Monocytes % Not Reportable Monocytes % (Manual) 4 Eosinophils % Not Reportable Eosinophils % (Manual) 0 Basophils % Not Reportable Basophils % (Manual) 0 Metamyelocytes % 2 H Absolute Neutrophils Not Reportable Abs Neuts (Manual) 14.1 H Absolute Lymphocytes Not Reportable Abs Lymphs (Manual) 0.8 Absolute Monocytes Not Reportable Abs Monocytes (Manual) 0.6 Absolute Eosinophils Not Reportable Absolute Eos (Manual) 0.0 Absolute Basophils Not Reportable Abs Basophils (Manual) 0.0 Toxic Granulation Toxic Vacuolation Platelet Comment INCREASED Hypochromasia SLIGHT Poikilocytosis Anisocytosis 1+ Microcytosis SLIGHT Tear Drop Cells Helmet Cells Cypress Cells Rouleaux SLIGHT Sodium Potassium Chloride Carbon Dioxide Anion Gap BUN Creatinine Est GFR ( Amer) Est GFR (Non-Af Amer) Glucose Calcium Magnesium Total Bilirubin Direct Bilirubin AST ALT Alkaline Phosphatase Creatine Kinase Total Protein Albumin Lipase Vitamin B12 TSH Urine Color Urine Appearance Urine pH Ur Specific [place] Urine Protein Urine Glucose (UA) Urine Ketones Urine Blood Urine Nitrite Urine Bilirubin Urine Urobilinogen Ur Leukocyte Esterase Urine WBC (Auto) Urine RBC (Auto) Urine Ascorbic Acid Urine Opiates Screen Urine Methadone Screen Ur Barbiturates Screen Ur Phencyclidine Scrn Ur Amphetamines Screen U Benzodiazepines Scrn Urine Cocaine Screen U Marijuana (THC) Screen C. difficile Tox (PCR) Monotest HIV 1&2 Antibody Influenza A (Rapid) NEGATIVE Influenza B (Rapid) NEGATIVE Group A Strep Rapid NEGATIVE 07/22/16 07/22/16 07/22/16 13:50 13:50 13:50 WBC RBC Hgb Hct MCV MCH MCHC RDW Plt Count Total Counted Seg Neutrophils % Seg Neuts % (Manual) Band Neutrophils % Lymphocytes % Lymphocytes % (Manual) Monocytes % Monocytes % (Manual) Eosinophils % Eosinophils % (Manual) Basophils % Basophils % (Manual) Metamyelocytes % Absolute Neutrophils Abs Neuts (Manual) Absolute Lymphocytes Abs Lymphs (Manual) Absolute Monocytes Abs Monocytes (Manual) Absolute Eosinophils Absolute Eos (Manual) Absolute Basophils Abs Basophils (Manual) Toxic Granulation Toxic Vacuolation Platelet Comment Hypochromasia Poikilocytosis Anisocytosis Microcytosis Tear Drop Cells Helmet Cells Cypress Cells Rouleaux Sodium 124.0 L Potassium 3.4 L Chloride 82 L Carbon Dioxide 32 H Anion Gap 10 BUN 13 Creatinine 0.81 Est GFR ( Amer) > 60 Est GFR (Non-Af Amer) > 60 Glucose 130 H Calcium 8.8 Magnesium 2.6 H Total Bilirubin 0.9 Direct Bilirubin 0.0 AST 70 H ALT 97 H Alkaline Phosphatase 171 H Creatine Kinase 41 L Total Protein 8.1 Albumin 3.5 Lipase 22.2 L Vitamin B12 TSH Urine Color Urine Appearance Urine pH Ur Specific [place] Urine Protein Urine Glucose (UA) Urine Ketones Urine Blood Urine Nitrite Urine Bilirubin Urine Urobilinogen Ur Leukocyte Esterase Urine WBC (Auto) Urine RBC (Auto) Urine Ascorbic Acid Urine Opiates Screen Urine Methadone Screen Ur Barbiturates Screen Ur Phencyclidine Scrn Ur Amphetamines Screen U Benzodiazepines Scrn Urine Cocaine Screen U Marijuana (THC) Screen C. difficile Tox (PCR) Monotest NEGATIVE HIV 1&2 Antibody NEGATIVE Influenza A (Rapid) Influenza B (Rapid) Group A Strep Rapid 07/22/16 07/22/16 07/23/16 15:00 15:00 03:59 WBC RBC Hgb Hct MCV MCH MCHC RDW Plt Count Total Counted Seg Neutrophils % Seg Neuts % (Manual) Band Neutrophils % Lymphocytes % Lymphocytes % (Manual) Monocytes % Monocytes % (Manual) Eosinophils % Eosinophils % (Manual) Basophils % Basophils % (Manual) Metamyelocytes % Absolute Neutrophils Abs Neuts (Manual) Absolute Lymphocytes Abs Lymphs (Manual) Absolute Monocytes Abs Monocytes (Manual) Absolute Eosinophils Absolute Eos (Manual) Absolute Basophils Abs Basophils (Manual) Toxic Granulation Toxic Vacuolation Platelet Comment Hypochromasia Poikilocytosis Anisocytosis Microcytosis Tear Drop Cells Helmet Cells Cypress Cells Rouleaux Sodium Potassium Chloride Carbon Dioxide Anion Gap BUN Creatinine Est GFR ( Amer) Est GFR (Non-Af Amer) Glucose Calcium Magnesium Total Bilirubin Direct Bilirubin AST ALT Alkaline Phosphatase Creatine Kinase Total Protein Albumin Lipase Vitamin B12 TSH Urine Color YELLOW Urine Appearance CLEAR Urine pH 6.0 Ur Specific [place] 1.009 Urine Protein NEGATIVE Urine Glucose (UA) NEGATIVE Urine Ketones NEGATIVE Urine Blood NEGATIVE Urine Nitrite NEGATIVE Urine Bilirubin NEGATIVE Urine Urobilinogen NEGATIVE Ur Leukocyte Esterase NEGATIVE Urine WBC (Auto) 3 Urine RBC (Auto) 1 Urine Ascorbic Acid NEGATIVE Urine Opiates Screen NEGATIVE Urine Methadone Screen NEGATIVE Ur Barbiturates Screen NEGATIVE Ur Phencyclidine Scrn NEGATIVE Ur Amphetamines Screen NEGATIVE U Benzodiazepines Scrn NEGATIVE Urine Cocaine Screen NEGATIVE U Marijuana (THC) Screen NEGATIVE C. difficile Tox (PCR) NEGATIVE Monotest HIV 1&2 Antibody Influenza A (Rapid) Influenza B (Rapid) Group A Strep Rapid 07/23/16 07/23/16 07/23/16 04:46 04:46 04:46 WBC 13.0 H RBC 4.16 L Hgb 10.3 L D Hct 31.5 L MCV 76 L MCH 24.7 L MCHC 32.7 RDW 16.5 H Plt Count 320 Total Counted 100 Seg Neutrophils % Not Reportable Seg Neuts % (Manual) 84 H Band Neutrophils % 8 H Lymphocytes % Not Reportable Lymphocytes % (Manual) 2 L Monocytes % Not Reportable Monocytes % (Manual) 5 Eosinophils % Not Reportable Eosinophils % (Manual) 0 Basophils % Not Reportable Basophils % (Manual) 0 Metamyelocytes % 1 H Absolute Neutrophils Not Reportable Abs Neuts (Manual) 12.1 H Absolute Lymphocytes Not Reportable Abs Lymphs (Manual) 0.3 L Absolute Monocytes Not Reportable Abs Monocytes (Manual) 0.7 Absolute Eosinophils Not Reportable Absolute Eos (Manual) 0.0 Absolute Basophils Not Reportable Abs Basophils (Manual) 0.0 Toxic Granulation 2+ Toxic Vacuolation PRESENT Platelet Comment ADEQUATE Hypochromasia Poikilocytosis 2+ Anisocytosis 1+ Microcytosis 1+ Tear Drop Cells 1+ Helmet Cells SLIGHT Cypress Cells 1+ Rouleaux SLIGHT Sodium 126.8 L Potassium 4.8 D Chloride 93 L Carbon Dioxide 26 Anion Gap 8 BUN 8 Creatinine 0.57 Est GFR ( Amer) > 60 Est GFR (Non-Af Amer) > 60 Glucose 125 H Calcium 7.9 L Magnesium Total Bilirubin 0.4 Direct Bilirubin 0.0 AST 46 ALT 82 H Alkaline Phosphatase 120 Creatine Kinase Total Protein 5.7 L Albumin 2.4 L Lipase Vitamin B12 > 1000.0 H TSH 0.97 Urine Color Urine Appearance Urine pH Ur Specific [place] Urine Protein Urine Glucose (UA) Urine Ketones Urine Blood Urine Nitrite Urine Bilirubin Urine Urobilinogen Ur Leukocyte Esterase Urine WBC (Auto) Urine RBC (Auto) Urine Ascorbic Acid Urine Opiates Screen Urine Methadone Screen Ur Barbiturates Screen Ur Phencyclidine Scrn Ur Amphetamines Screen U Benzodiazepines Scrn Urine Cocaine Screen U Marijuana (THC) Screen C. difficile Tox (PCR) Monotest HIV 1&2 Antibody Influenza A (Rapid) Influenza B (Rapid) Group A Strep Rapid 07/24/16 07/24/16 05:54 05:54 WBC 9.3 RBC 3.94 L Hgb 9.8 L Hct 30.3 L MCV 77 L MCH 25.0 L MCHC 32.4 RDW 16.4 H Plt Count 302 Total Counted 100 Seg Neutrophils % Not Reportable Seg Neuts % (Manual) 66 Band Neutrophils % 14 H Lymphocytes % Not Reportable Lymphocytes % (Manual) 8 L Monocytes % Not Reportable Monocytes % (Manual) 8 Eosinophils % Not Reportable Eosinophils % (Manual) 2 Basophils % Not Reportable Basophils % (Manual) 1 Metamyelocytes % 1 H Absolute Neutrophils Not Reportable Abs Neuts (Manual) 7.5 Absolute Lymphocytes Not Reportable Abs Lymphs (Manual) 0.7 Absolute Monocytes Not Reportable Abs Monocytes (Manual) 0.7 Absolute Eosinophils Not Reportable Absolute Eos (Manual) 0.2 Absolute Basophils Not Reportable Abs Basophils (Manual) 0.1 Toxic Granulation SLIGHT Toxic Vacuolation Platelet Comment ADEQUATE Hypochromasia SLIGHT Poikilocytosis Anisocytosis 1+ Microcytosis 1+ Tear Drop Cells Helmet Cells Omi Cells Rouleaux Sodium 131.3 L Potassium 3.8 Chloride 98 Carbon Dioxide 24 Anion Gap 9 BUN 5 L Creatinine 0.61 Est GFR ( Amer) > 60 Est GFR (Non-Af Amer) > 60 Glucose 94 Calcium 7.9 L Magnesium Total Bilirubin 0.3 Direct Bilirubin 0.0 AST 26 ALT 65 Alkaline Phosphatase 101 Creatine Kinase Total Protein 5.0 L Albumin 2.3 L Lipase Vitamin B12 TSH Urine Color Urine Appearance Urine pH Ur Specific [place] Urine Protein Urine Glucose (UA) Urine Ketones Urine Blood Urine Nitrite Urine Bilirubin Urine Urobilinogen Ur Leukocyte Esterase Urine WBC (Auto) Urine RBC (Auto) Urine Ascorbic Acid Urine Opiates Screen Urine Methadone Screen Ur Barbiturates Screen Ur Phencyclidine Scrn Ur Amphetamines Screen U Benzodiazepines Scrn Urine Cocaine Screen U Marijuana (THC) Screen C. difficile Tox (PCR) Monotest HIV 1&2 Antibody Influenza A (Rapid) Influenza B (Rapid) Group A Strep Rapid 07/23/16 03:59 - Preliminary Stool - Stool Stool Culture - Preliminary 07/22/16 17:33 Viral Culture - Pending Mouth - Lip 07/22/16 16:48 Blood Culture - Preliminary Blood NO GROWTH IN 24 HOURS 07/22/16 14:55 Blood Culture - Preliminary Blood NO GROWTH IN 24 HOURS 07/22/16 13:00 Throat Culture - Preliminary Throat Impressions: Abdomen/Pelvis CT 07/22/16 14:43 IMPRESSION: Diffuse colonic bowel wall thickening. Findings are consistent with colitis. This could be infectious or inflammatory. Plan Discharge Plan: Discharged home Patient will return to [facility] with his mother for follow up care
[2016-07-24 08:40] VITALS: BP 126/69
[2016-07-24] MEDS: ENOXAPARIN SODIUM INJ 40 MG/0.4 ML DISP.SYRIN SUBCUT SCH (08:58)
[2016-07-25 19:11] LABS: PATH REVIEW PATHOLOGIST REVIEWED
[2016-07-26 12:54] LABS: LYME DISEASE IGG AND IGM AB <0.91 ISR (0.00-0.90)
== END 2016-07-24 09:00 | disposition home or self-care (01) | DRG 641 ==
LOC: ER 12:41 → EH 17:09 → UNDOADMIN 17:09 → EH 17:14 → 4N 21:09
PROVIDERS: ADMIT Emergency Medicine; ATTEND Emergency Medicine
DX: E87.1 Hypo-osmolality and hyponatremia (principal); K52.9 Noninfective gastroenteritis and colitis, unspecified; E87.3 Alkalosis; K12.1 Other forms of stomatitis; E86.0 Dehydration; E87.6 Hypokalemia; L52 Erythema nodosum; D72.829 Elevated white blood cell count, unspecified; I95.9 Hypotension, unspecified
CPT/HCPCS: 36415; 74177; 80053; 80307; 81001; 82550; 82607; 83690; 83735; 84443; 85025; 86308; 86617; 86618; 86701; 87040; 87045; 87070; 87205; 87252; 87493; 87804; 87880; 96361; 96374; 99291; J0744; J1650; J2405; J3480; J3490; J7030; J7512